=== PATIENT | male | born 1940 | race Caucasian/White ===

== ENCOUNTER 2017-03-19 17:54 | Outpatient (CLI) | payer MEDICARE, OTHER | END 2017-03-19 17:55 | disposition critical access hospital (66) | LOC: EMS 17:54 | PROVIDERS: ATTEND Surgery | DX: R55 Syncope and collapse (principal) | CPT/HCPCS: A0425; A0429 ==

== ENCOUNTER 2017-03-19 18:25 | Observation (INO) | payer MEDICARE, OTHER ==
--- NOTE | 2017-03-19 18:41 | ED Physician Documentation ---
PD HPI SYNCOPE - Stated complaint Stated Complaint: SYNCOPE - Chief complaint Chief Complaint: Neuro - History obtained from History obtained from: Patient, EMS - History of Present Illness Witnessed: Witnessed Timing - onset: Today Duration: Seconds Preceding symptoms: None Associated symptoms: None. No: Seizure, Incontinant of urine, Incontinant of stool, Headache, Vision changes, Chest pain, Palpitations, Diaphoresis, Dyspnea , Nausea / vomiting, Abdominal pain Contributing factors: Exertion (helping put a trailer into the bed of a pickup) . No: Recent med change, Decreased PO intake, Noxious stimulae, Emotional upset , Just stood up Injury occurred: Fell. No: Head injury, Neck injury, Bit tongue Pain level max: 0 Pain level now: 0 Recently seen: Not recently seen (doesn't have a PCP) Review of Systems Ten Systems: 10 systems reviewed and negative Constitutional: denies: Fever, Chills Nose: denies: Rhinorrhea / runny nose, Congestion Throat: denies: Sore throat Cardiac: denies: Chest pain / pressure, Palpitations Respiratory: denies: Cough GI: denies: Abdominal Pain, Nausea, Vomiting, Diarrhea Skin: denies: Rash Musculoskeletal: denies: Neck pain, Back pain Neurologic: denies: Focal weakness, Numbness, Confused, Altered mental status, Headache PD PAST MEDICAL HISTORY - Past Medical History Past Medical History: No - Past Surgical History Past Surgical History: No - Present Medications Home Medications: Ambulatory Orders Medication Instructions Recorded Confirmed No Known Home Medications [No 03/19/17 03/19/17 Known Home Medications] - Allergies Allergies/Adverse Reactions: Allergies Allergy/AdvReac Type Severity Reaction Status Date / Time No Known Drug Allergies Allergy Verified 03/19/17 18:31 - Living Situation Living Situation: reports: With family Living Arrangement: reports: At home - Social History Does the pt have substance abuse?: No - Family History Family history: reports: Non contributory PD ED PE NORMAL - Vitals Vital signs reviewed: Yes - General General: Alert and oriented X 3, No acute distress, Well developed/nourished - HEENT HEENT: Atraumatic, PERRL, Ears normal, Moist mucous membranes, Pharynx benign - Neck Neck: Supple, no meningeal sign, No bony TTP - Cardiac Cardiac: RRR, Strong equal pulses - Respiratory Respiratory: No respiratory distress, Clear bilaterally - Abdomen Abdomen: Soft, Non tender, Non distended - Back Back: No spinal TTP - Derm Derm: Warm and dry - Extremities Extremities: No edema, No calf tenderness / cord - Neuro Neuro: Alert and oriented X 3, 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, No motor deficit, No sensory deficit, Normal speech - Psych Psych: Normal mood, Normal affect Results - Vitals Vitals: Vital Signs - 24 hr 03/19/17 03/19/17 03/19/17 18:27 18:49 19:00 Temperature 36.1 C L Heart Rate 101 H 93 174 H Respiratory 16 16 16 Rate Blood Pressure 156/94 H 118/45 L 104/68 O2 Saturation 98 97 97 03/19/17 03/19/17 03/19/17 19:02 19:05 19:18 Temperature Heart Rate 92 94 87 Respiratory 16 16 17 Rate Blood Pressure 104/68 141/69 H 129/64 O2 Saturation 97 100 95 03/19/17 03/19/17 03/19/17 19:49 20:12 20:27 Temperature Heart Rate 85 89 85 Respiratory 16 16 17 Rate Blood Pressure 130/73 106/61 121/65 O2 Saturation 96 96 03/19/17 20:31 Temperature Heart Rate 79 Respiratory 17 Rate Blood Pressure O2 Saturation 97 Oxygen O2 Source Room air - EKG (time done) 1832 Rate: Rate (enter#) (91) Rhythm: NSR Gallant: Normal Intervals: Normal LA QRS: Normal Ischemia: T wave inversion (III, aVF) Computer interpretation: Agree with computer 1857 Rate: Rate (enter#) (162) Rhythm: SVT Gallant: Normal Ischemia: Other (rate related changes) Computer interpretation: Agree with computer 1901 Rate: Rate (enter#) (97) Rhythm: NSR Gallant: Normal Intervals: Normal LA QRS: Normal Ischemia: Normal ST segments Computer interpretation: Agree with computer - Labs Labs: Laboratory Tests 03/19/17 03/19/17 03/19/17 18:40 18:40 18:40 WBC 6.0 RBC 4.66 L Hgb 13.9 L Hct 41.5 L MCV 89.1 MCH 29.8 MCHC 33.4 RDW 16.1 H Plt Count 225 MPV 7.3 L Neut # 3.9 Lymph # 1.5 Luna # 0.4 Eos # 0.1 Baso # 0.0 Absolute Nucleated RBC 0.00 Nucleated RBCs 0.0 Sodium 138 Potassium 3.6 Chloride 101 Carbon Dioxide 26 Anion Gap 11.0 BUN 25 H Creatinine 0.8 Estimated GFR (MDRD) 94 Glucose 137 H Calcium 9.3 Total Bilirubin 0.7 AST 48 H ALT 35 Alkaline Phosphatase 136 H Troponin I 0.06 Total Protein 7.5 Albumin 4.8 Globulin 2.7 Albumin/Globulin Ratio 1.8 Lipase 19 L - Rads (name of study) cxr Radiology: Prelim report reviewed, EMP read contemporaneously, See rad report ( No acute pulmonary consolidation. Mild prominence of the right superior mediastinum, probably tortuous vessels. ) PD MEDICAL DECISION MAKING - ED course Complexity details: reviewed results, re-evaluated patient, considered differential, d/w patient, d/w loans consultant ED course: 1949 - Dr. Colunga (cardiology) at [facility]. Recommends not starting meds tonight. Recommends tele monitoring, echocardiogram and outpatient eval. Patient is a 76-year-old male who presents to the emergency department after a syncopal event tonight. No prodrome. While in the emergency department he had SVT. This was terminated with adenosine after vagal maneuvers failed. We will admit the patient for observation. Will plan to place on telemetry and have an echocardiogram in the morning. He does not currently have a primary care provider. Concern for cardiac arrhythmia causing the syncopal events as this is happened more than once with no prodrome. Currently has no chest pain, no shortness of breath. Discussed the case with Dr. Sifuentes, hospitalist who accepts. This document was made in part using voice recognition software. While efforts are made to proofread this document, sound alike and grammatical errors may occur. Departure - Departure Disposition: ED Place in Observation Clinical Impression: SVT (supraventricular tachycardia) Syncope Qualifiers: Syncope type: unspecified Qualified Code(s): R55 - Syncope and collapse Condition: Stable Discharge Date/Time: 03/19/17 21:20
[2017-03-19] MEDS ORDERED: SODIUM CHLORIDE 0.9% 1,000 ML IV ONE (18:42)
[2017-03-19] MEDS ORDERED: ADENOSINE 6 MG/2 ML VIAL IVP ONE (18:55)
[2017-03-19] MEDS ORDERED: ADENOSINE 6 MG/2 ML VIAL IVP STA (19:04)
[2017-03-19 19:05] LABS: BASOPHILS % (AUTO) 0.6 %; EOSINOPHILS # (AUTO) 0.1 10^3/uL (0.0-0.7); EOSINOPHILS % (AUTO) 2.4 %; HCT - HEMATOCRIT 41.5 % (42.0-52.0); HGB - HEMOGLOBIN 13.9 g/dL (14.0-18.0); LYMPHOCYTES # (AUTO) 1.5 10^3/uL (1.5-3.5); LYMPHOCYTES % (AUTO) 25.6 %; MEAN CORPUSCULAR HEMOGLOBIN 29.8 pg (27.0-31.0); MEAN CORPUSCULAR HGB CONC 33.4 g/dL (32.0-36.0); MEAN CORPUSCULAR VOLUME 89.1 fL (80.0-94.0); MEAN PLATELET VOLUME 7.3 fL (7.4-11.4); MONOCYTES # (AUTO) 0.4 10^3/uL (0.0-1.0); MONOCYTES % (AUTO) 7.4 %; NEUTROPHILS # (AUTO) 3.9 10^3/uL (1.5-6.6); RED BLOOD COUNT 4.66 10^6/uL (4.70-6.10); RED CELL DISTRIBUTION WIDTH 16.1 % (12.0-15.0)
[2017-03-19 19:19] LABS: ALBUMIN/GLOBULIN RATIO 1.8 (1.0-2.2); BILIRUBIN,TOTAL 0.7 mg/dL (0.2-1.0); CALCIUM 9.3 mg/dL (8.5-10.3); CREATININE 0.8 mg/dL (0.6-1.2); POTASSIUM 3.6 mmol/L (3.5-5.0); TOTAL PROTEIN 7.5 g/dL (6.7-8.2)
--- NOTE | 2017-03-19 19:26 | XRAY Preliminary Report ---
Exam: XR Chest 1 View IMPRESSION: 1. No acute pulmonary consolidation. 2. Mild prominence of the right superior mediastinum, probably tortuous vessels. [facility] SITE ID: [id number]
--- NOTE | 2017-03-19 19:28 | XRAY Report ---
EXAM: CHEST RADIOGRAPHY EXAM DATE: 03/19/2017 07:00 PM. CLINICAL HISTORY: Syncope. COMPARISON: None. TECHNIQUE: 1 view. FINDINGS: Lungs/Pleura: No focal opacities evident. No pleural effusion. No pneumothorax. Mediastinum: Normal heart size. Mild prominence of the right superior mediastinum. Other: None. IMPRESSION: 1. No acute pulmonary consolidation. 2. Mild prominence of the right superior mediastinum, probably tortuous vessels. [facility] Referring Provider Line: [phone] SITE ID: [id number]
[2017-03-19] MEDS ORDERED: SODIUM CHLORIDE FLUSH 0.9% 10 ML SYRINGE IVP PRN (20:35)
[2017-03-19] MEDS ORDERED: ONDANSETRON 4 MG/2 ML VIAL IVP PRN (20:35)
[2017-03-19] MEDS ORDERED: ACETAMINOPHEN 325 MG TABLET PO PRN (20:35)
[2017-03-20] MEDS: SODIUM CHLORIDE 0.9% 1,000 ML IV SCH ×2 (00:33→11:19)
--- NOTE | 2017-03-20 02:05 | HISTORY & PHYSICAL EXAMINATION ---
DATE OF ADMISSION: 03/19/2017 PRIMARY CARE PHYSICIAN: None. CHIEF COMPLAINT: Syncopal episode. HISTORY OF PRESENT ILLNESS: This is a 76-year-old male who presents by EMS after having a syncopal ep isode at home. He was helping someone with a trailer and passed out, lost consciousness for a few sec onds, and did hit the right side of his head; he has a superficial abrasion at the right forehead are a. He noted that he was feeling a fast heart rate prior to this happening. He also describes an upper chest sternal tightness, which lasted briefly prior to this episode. He had a similar episode in Jan but did not seek medical care for that. At that point, he did not eat anything the whole day, and it had occurred. He was not doing anything exertional at that time. The patient does note that with t his episode, he was eating appropriately the day of the event. His evaluation in the emergency room noted that he initially was brought in with sinus rhythm; ginoe r, then developed a supraventricular tachycardia at 160 with some repolarization abnormalities noted. He did convert into sinus after 6 mg of IV adenosine. Of note, as documented in the ER MD's note, wi th the tachycardia, his blood pressure was 104/68; prior to that, blood pressure was 118/45. His O2 s aturations remained normal on room air pre- and post and during the event. His baseline EKG sinus rev eals rate of 91 with some borderline T-wave inversions in III, aVF. First troponin was noted to be 0. 06. Patient is currently asymptomatic. PAST MEDICAL HISTORY 1. 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 2. 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 MEDICATIONS UPON ADMISSION: None. ALLERGIES: NO KNOWN DRUG ALLERGIES. SOCIAL HISTORY: Lives with significant other. HABITS SMOKING: Quit 1959. ALCOHOL: 2-3 mixed drinks daily. FAMILY MEDICAL HISTORY: No history of coronary artery disease. Father had a history of TIAs in his 90 s. REVIEW OF SYSTEMS: Denies any fever or chills; denies any nausea or vomiting, alteration in bowel mov ements. All other review of systems are reviewed and are negative except as in HPI. PHYSICAL EXAMINATION VITAL SIGNS: Heart rate is 79, blood pressure 121/65, respiratory rate 17, room air saturation 97%. CONSTITUTIONAL: An elderly male in no acute distress. HEENT: Head does reveal a superficial abrasion of his right forehead. Eyes: PERRLA-DC, EOMI. Mouth: N o lesions. NECK: No adenopathy. Carotids 2+/4 without bruits. CHEST: Clear to auscultation. COR: Regular rate and rhythm. S1, S2 without murmur. ABDOMEN: Soft, nontender. Bowel sounds present. EXTREMITIES: Exam reveals no pedal edema. SKIN: No rashes. PSYCHIATRIC: Mood and affect are appropriate. NEUROLOGIC: Alert and oriented x3. Motor strength is intact bilaterally. LABORATORY DATA As above, also to include: Chest x-ray, which shows no acute pulmonary consolidation, mild prominence of the right superior medi astinal, probably tortuous vessel. Sodium 138, potassium 3.6, chloride 101, bicarbonate 26, anion gap 11, BUN 25, creatinine 0.8, calcul ated GFR 94, glucose 137, calcium 9.3, total bilirubin 0.7, AST 48, ALT 35, alkaline phosphatase 136, troponin 0.06. Total protein 7.5, albumin 4.8, lipase 19. White count 6.0, hemoglobin 13.9, hematocrit 41.5, MCV 89.1, platelets 225, 3.9 neutrophils. ASSESSMENT AND PLAN 1. Syncopal episode with a run of supraventricular tachycardia after conversion with adenosine intrav enous. We will go ahead and place on telemetry. This possibly could be etiology. We will check serial cardiac enzymes, check echocardiogram in a.m. 2. Deep venous thrombosis prophylaxis. We will go ahead and use SCDs; will not put on subcutaneous an ticoagulation, given some trauma to his head. 3. Code status. The patient is FULL CODE. TIME SPENT: 60 minutes. JOB #: [id number] EXT JOB #:[id number]
[2017-03-20] MEDS: SODIUM CHLORIDE FLUSH 0.9% 10 ML SYRINGE IVP SCH ×2 (02:07→05:28)
[2017-03-20] MEDS ORDERED: POLYETHYLENE GLYCOL 3350 17 GM PACKET PO SCH (09:00)
--- NOTE | 2017-03-20 10:02 | Discharge Plan ---
Discharge Plan Disposition: 01 Home, Self Care Condition: Stable Diet: Regular Activity Restrictions: No Restrictions Shower Restrictions: No Driving Restrictions: No Weight Bearing: Full Weight Additional Instructions or Follow Up instructions: -Supraventricular tachycardia (rapid regular heart rate) You came to the hospital after a passing-out episode, (which has also happened previously) that appeared to be most likely related to episodic very fast heart rate (in looking at other possible reasons for passing out, your chemistries/blood work and complete blood count were not remarkable, your blood sugar was ok, chest X ray normal, no shortness of breath nor oxygen need, no evident seizure activity, no evident no culprit medications (you had not eateen no significant "leak" of heart enzymes (no heart attack), , Your heart rate was found to be ~ 160 (regular rate), this did not improve with "vagal maneuvers" tried in the ED. The rapid rate did respond to a medication; adenosine The ED spoke with a Dr. Colunga at [facility], He did not recommend starting medications for rate control at this time (and your relatively low HR 60's - 70 did not leave alot of room for rate control medications) Dr. Colunga Advised monitroing on telemetry (you remained in normal sinus rhythm overnight ever since the adenosine) and echocardiogram Echo result: Preliminary read: normal ejection fraction 65-70%, No wall motion abnormality VAlves ; no significant abnormality. No high pulmonary pressures (RVSP 36 mm (mildly elevated). Mild tricauspid regurg, On preliminary read: Severe Right atrial enlaregement , and inleft atrial volume index. YOu will need an outpatient cardiology evaluation; Call the [facility] for a cardiology consultation. Call [facility] will need to set up an appointment with a new PCP ( ideally you should have a PCP) No Smoking: If you smoke, Please STOP! Call for help.
[2017-03-20 12:14] VITALS: BP 128/78
--- NOTE | 2017-03-20 15:51 | DISCHARGE SUMMARY ---
DATE OF ADMISSION: 03/19/2017 DATE OF DISCHARGE: 03/20/2017 PRIMARY CARE PROVIDER: He does not have one. He is advised to get a provider on [facility] or wherever his preference would be and he should have a cardiology appointment at the [facility], which he has yet to establish. DISCHARGE DIAGNOSES: 1. Supraventricular tachycardia. 2. Syncope due to supraventricular tachycardia. CONSULTATIONS: None. PROCEDURES: None. DIAGNOSTIC STUDIES AND IMAGING STUDIES: Chest x-ray 03/19/2017, no acute pulmonary consolidation, no acute abnormality. Mild prominent right superior mediastinum probably tortuous vessels. Echocardiogram 03/19/2017, this is the preliminary report: Normal LV size and function with an overall EF of 65% to 70%, no regional wall motion abnormalities , indeterminate diastolic function.False chordae tendinae noted LV . Normal RV size and function . (note ;On the preliminary report, left atrial volume index is reported as severe increase and also right atrium is noted as having severe right atrial enlargement/ NOT noted on cardiolgoists interpretation. ) No significant valvular abnormalities, specifically no aortic stenosis, no aortic regurg, no mitral stenosis. Trace mitral regurgitation, mild tricuspid regurgitation, and mildly elevated right heart pressures with an RVSP of 36 mmHg , pulmonic valve normal. IVC dilatd suggests elevated CVP LABORATORY DIAGNOSTICS: Sodium 138, potassium 3.6, chloride 101, bicarbonate 26 , BUN 25, creatinine 0.8, glucose 137. Troponin #1 0.06. Second troponin 0.10 and third troponin 0.07. White count 6.0, hemoglobin 13.9, hematocrit 41.5, platelets 225,000. BRIEF HOSPITAL COURSE: The patient is a 76-year-old gentleman with no significant past medical history. He came to the emergency room after having an abrupt syncopal episode with no prodrome. He has had a similar episode in the past and does note that he did have a sense of palpitations. He did immediately recover consciousness. In the emergency room when he first came in he was in sinus rhythm; however, had an SVT with a rate of 160. This did not respond to vagal maneuvers, however, did convert to sinus rhythm with 6 mg of IV adenosine. The ER spoke with a Dr. Colunga of Cardiology at [facility]. He advised monitoring on telemetry and obtaining echocardiogram and for the moment not starting any medications. Of note, the patient's heart rate after converted to normal sinus with the adenosine remained at a rate between 60 and 70 so there was little room for a rate control agent anyway. His blood pressure was stable, and at the time of his heart rate being 160, his systolic was in the one -teens. He was monitored overnight on telemetry and remained in sinus rhythm. His troponins had a very minimal indeterminate increase. Echocardiogram as above showed normal LV size and function. The preliminary report suggested severe right atrial enlargement, although there was no obvious reason that would be in the final read by the food technologist is pending. The patient does not have a PCP. He was given the phone number for the [facility] and advised to have a cardiology followup. The detail of his admission is included on his discharge paperwork with him to bring to the food technologist in the event the discharge summary is not yet available. He is also advised at his age to at least have a primary care provider available. He does drink approximately 3 alcohol drinks daily and had not eaten on the day of the syncopal event, though this was not atrial fibrillation and just the alcohol alone should not be a precipitant for the SVT. His BUN and creatinine suggest he was mildly volume depleted. He was advised to reduce the alcohol and drink plenty of liquids especially with the warmer weather coming. DISCHARGE MEDICATIONS: No new medications. He can continue his p.r.n. Ibuprofen 400 mg. PHYSICAL EXAMINATION ON THE DAY OF DISCHARGE: VITAL SIGNS: Afebrile, 36.6, heart rate 64 to 70, blood pressure 128-132/78, respiratory rate 16, 96-97% room air oxygenation. This patient is a very pleasant, alert, oriented, older gentleman with a very small contusion on his right forehead. CHEST: Clear to auscultation. HEART: Regular S1, S2 with no appreciable extra sounds. ABDOMEN: Benign. Positive bowel sounds. He has no appreciable extremity edema. JOB #: [id number] EXT JOB #:[id number] MTDD
== END 2017-03-20 12:48 | disposition home or self-care (01) ==
LOC: ED 18:25 → MS 20:35
PROVIDERS: ADMIT Specialist; ATTEND Nurse Practitioner
DX: I47.1 Supraventricular tachycardia (principal); R55 Syncope and collapse; S00.83XA Contusion of other part of head, initial encounter; W19.XXXA Unspecified fall, initial encounter; X50.0XXA Overexertion from strenuous movement or load, initial encounter; Y92.009 Unspecified place in unspecified non-institutional (private) residence as the place of occurrence of the external cause; Z96.643 Presence of artificial hip joint, bilateral; Z87.891 Personal history of nicotine dependence; Z82.0 Family history of epilepsy and other diseases of the nervous system
CPT/HCPCS: 36415; 71010; 80053; 83690; 84484; 85025; 93005; 93010; 93306; 96361; 96374; 99285; G0378; J0153

== ENCOUNTER 2023-05-23 08:51 | Outpatient (CLI) | payer MEDICARE, OTHER ==
--- NOTE | 2023-05-23 13:55 | XRAY Report ---
PROCEDURE: Lumbar Spine 2 View INDICATIONS: LOW BACK PAIN TECHNIQUE: 3 views of the lumbar spine were acquired. COMPARISON: None. FINDINGS: Bones: 5 [id number] vertebrae are present. There is normal bony alignment. No vertebral body compression fractures. No suspicious bony lesions. Multilevel disc space narrowing and degenerative endplate changes with bridging osteophyte formation. Mild bilateral facet hypertrophy. Bilateral tota l hip arthroplasties are present. Soft tissues: Overlying bowel gas pattern is normal. No suspicious soft tissue calcifications. IMPRESSION: Moderate multilevel spondylosis. Reviewed by: Oj Arellano MD on 05/23/2023 1:54 PM PDT Approved by: Oj Arellano MD on 05/23/2023 1:54 PM PDT Station ID: [id number]
== END 2023-05-23 08:52 | disposition home or self-care (01) ==
LOC: DI.S 08:51
PROVIDERS: ATTEND Nurse Practitioner Family
DX: M47.816 Spondylosis without myelopathy or radiculopathy, lumbar region (principal)

== ENCOUNTER 2023-07-31 13:12 | Outpatient (CLI) | payer MEDICARE, OTHER | END 2023-07-31 13:13 | disposition critical access hospital (66) | LOC: EMS 13:12 | DX: R20.2 Paresthesia of skin (principal); R53.1 Weakness; R47.81 Slurred speech | CPT/HCPCS: A0425; A0429 ==

== ENCOUNTER 2023-07-31 13:43 | Emergency (ER) | payer MEDICARE, OTHER ==
--- NOTE | 2023-07-31 13:47 | ED Physician Documentation ---
PD HPI FOCAL NEURO - Stated complaint Stated Complaint: SLURRING SPEEACH/R ARM TINGLING - History obtained from History obtained from: Patient, EMS - History of Present Illness Timing - onset: Today (at 11 am.) Timing - duration: Hours (3) Timing - details: Abrupt onset, Now resolved (he feels symptoms are mostly resolved with just minimal word searching.) Severity of deficit: Moderate (expressive aphasia) Weakness: Hand, Right. No: Face, Leg Numbness: Hand, Right. No: Face, Leg Associated symptoms: No: Headache, Nausea / vomiting Contributing factors: negative: Anticoagulated, Atrial fibrillation Baseline status: positive: A&OX3, ambulatory, indep Similar symptoms before: Has not had sx before Recently seen: Not recently seen Review of Systems Constitutional: denies: Fever, Chills Neurologic: denies: Focal weakness, Headache, Head injury PD PAST MEDICAL HISTORY - Past Medical History Cardiovascular: None Respiratory: None Neuro: None GI: None : None HEENT: None Psych: None Musculoskeletal: Osteoarthritis Derm: None - Past Surgical History Past Surgical History: No Ortho: Hip replacement, Arthroscopic surgery - Present Medications Home Medications: Ambulatory Orders Medication Instructions Recorded Confirmed No Known Home Medications 07/31/23 07/31/23 - Allergies Allergies/Adverse Reactions: Allergies Allergy/AdvReac Type Severity Reaction Status Date / Time No Known Drug Allergies Allergy Verified 03/19/17 18:31 - Social History Does the pt smoke?: No Smoking Status: Never smoker Does the pt have substance abuse?: No PD ED PE NORMAL - Vitals Vital signs reviewed: Yes - General General: Alert and oriented X 3, No acute distress, Well developed/nourished - HEENT HEENT: Atraumatic, PERRL, EOMI - Neck Neck: No bruit - Cardiac Cardiac: RRR, No murmur - Respiratory Respiratory: Clear bilaterally - Derm Derm: Normal color, Warm and dry - Neuro Neuro: Alert and oriented X 3, 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 No: Normal speech (normal articulation. Mild word search and hesitancy at times. ) NIHSS - Level of Consciousness Level of consciousness: (0) Alert, Keenly responsive LOC Questions: (0) Answers both Q's correct LOC Commands: (0) Performs both correctly - Gaze Best Gaze: (0) Normal - Visual Visual: (0) No loss - Facial Palsy Facial Palsy: (0) Normal, symmetrical movement - Motor Arms (both separate) Motor Arm (right): (0) No drift Motor Arm (left): (0) No drift - Motor Legs (both separate) Motor Leg (right): (0) No drift Motor Leg (left): (0) No drift - Limb Ataxia Limb Ataxia: (0) Absent - Sensory Sensory: (0) Normal - Best Language Best Language: (1) [id number] - Dysarthria Dysarthria: (0) Normal - Extinction and Inattention (formally neg Extinction and inattention: (0) No abnormality - Total Score/Results Total Score/Result: 1 Results - Vitals Vitals: Vital Signs - 24 hr 07/31/23 07/31/23 07/31/23 14:13 14:20 14:54 Temperature 36.1 C L Heart Rate 88 83 77 Respiratory 18 18 17 Rate Blood Pressure 144/83 H 144/83 H O2 Saturation 97 100 95 07/31/23 07/31/23 07/31/23 15:10 15:33 17:08 Temperature Heart Rate 90 83 84 Respiratory 17 17 16 Rate Blood Pressure 148/83 H O2 Saturation 96 99 07/31/23 07/31/23 07/31/23 17:13 17:26 18:32 Temperature Heart Rate 83 91 Respiratory 18 17 17 Rate Blood Pressure 157/87 H 126/85 H O2 Saturation 98 98 07/31/23 07/31/23 07/31/23 19:00 19:30 20:00 Temperature Heart Rate 89 78 80 Respiratory 20 20 15 Rate Blood Pressure 120/60 133/73 H O2 Saturation 96 98 98 07/31/23 07/31/23 07/31/23 20:30 21:00 21:30 Temperature 36.7 C Heart Rate 77 84 85 Respiratory 18 17 18 Rate Blood Pressure 143/73 H 132/79 H O2 Saturation 96 100 96 Oxygen O2 Source Room air - Labs Labs: Laboratory Tests 07/31/23 07/31/23 07/31/23 14:39 14:44 14:44 WBC 5.2 RBC 4.46 L Hgb 13.4 L Hct 40.9 L MCV 91.7 MCH 30.0 MCHC 32.8 RDW 12.6 Plt Count 198 MPV 8.6 Neut # (Auto) 3.3 Lymph # (Auto) 1.2 L Creek # (Auto) 0.5 Eos # (Auto) 0.2 Baso # (Auto) 0.0 Absolute Nucleated RBC 0.00 Nucleated RBC % 0.0 ESR Sodium 138 Potassium 3.7 Chloride 100 L Carbon Dioxide 32 Anion Gap 6.0 BUN 27 H Creatinine 0.8 Estimated GFR (MDRD) 93 Glucose 108 H POC Whole Bld Glucose 108 H Calcium 9.6 Magnesium 1.8 Total Bilirubin 0.5 AST 26 ALT 29 Alkaline Phosphatase 101 Total Protein 6.6 Albumin 4.5 Globulin 2.1 Albumin/Globulin Ratio 2.1 Lipase 20 Vitamin B12 1022 H SARS-CoV-2 (PCR) 07/31/23 07/31/23 14:44 15:05 WBC RBC Hgb Hct MCV MCH MCHC RDW Plt Count MPV Neut # (Auto) Lymph # (Auto) Creek # (Auto) Eos # (Auto) Baso # (Auto) Absolute Nucleated RBC Nucleated RBC % ESR 2 Sodium Potassium Chloride Carbon Dioxide Anion Gap BUN Creatinine Estimated GFR (MDRD) Glucose POC Whole Bld Glucose Calcium Magnesium Total Bilirubin AST ALT Alkaline Phosphatase Total Protein Albumin Globulin Albumin/Globulin Ratio Lipase Vitamin B12 SARS-CoV-2 (PCR) NOT DETECTED - Rads (name of study) head CT Relevant Findings:: Prelim report reviewed (likely chronic microvascular changes. ), EMP independent interpretation of test head/neck CTA Relevant Findings:: Prelim report reviewed (high grade stenoses at takeoff of ICAs bilaterally. ), Discussed with rads (Rad estimated about 90% stenosis both sides. ), EMP independent interpretation of test PD Medical Decision Making - ED course Complexity details: reviewed results, re-evaluated patient (the patient feeling he is mostly improved with just faint residual hesitancy on sentences and some word search. Otherwise no focal weaknesses. ), considered differential (had onset of moderate to severe aphasia and right arm/hand tingling/weakness. Mostly improved. TIA vs CVA. Not candidate for lytics per Stroke Neurology. Needs Vascular consultation for carotid stenoses. ), d/w patient, d/w vmware consultant (Dr. Salcido, Vascular surgery for [facility], who said pt should be transferred for endovascular treatment of the stenoses. ), other (Stroke Neurology did not feel lytics appropriate given improved symptoms, timing of onset now over 4 hours, and no indication of LVO. To consult Vascular urgently re stenoses. ) - Critical Care Time(min): 40 Comments: acute stroke symptoms with time urgency for evaluation, multiple consultations, testing. Decision window on thrombolytics. Time Includes: Direct patient care, Reassess patient, Document care, Coordinate care, Medical consult Procedures excluded from critical care time: EKG Departure - Departure Disposition: 02 Transfer Acute Care Hosp Clinical Impression: Aphasia, Stroke-like symptom, Carotid stenosis Condition: Stable Forms: PCP List Discharge Date/Time: 07/31/23 21:50
--- NOTE | 2023-07-31 14:20 | CT Report ---
PROCEDURE: Head W/O Stroke Protocol INDICATIONS: aphasia and right hand tingling TECHNIQUE: Noncontrast 4.5 mm thick angled axial sections acquired from the foramen magnum to the vertex, with c oronal reformats. For radiation dose reduction, the following was used: automated exposure control, adjustment of mA and/or kV according to patient size. COMPARISON: None. FINDINGS: Image quality: Excellent. CSF spaces: Basal cisterns are patent. No extra-axial fluid collections. Ventricles are normal in size and shape. Brain: No midline shift. No intracranial masses or hemorrhage. There are extensive deep and periv entricular white matter changes. Focal deep periventricular white matter changes are noted within the right occipitoparietal watershed area (series 2/image 31 and series 5/image 49). There is global vol ume loss, greater than expected for patient age. Skull and face: Calvarium and visualized facial bones are intact, without suspicious lesions. Sinuses: Visualized sinuses and mastoids are clear. IMPRESSION: 1. Focal periventricular white matter changes within the watershed distribution between the parietal and occipital lobes. Findings most likely represent sequela of chronic microvascular ischemic changes ; however subacute or early chronic infarct could also cause this appearance. 2. Global volume loss and periventricular white matter throughout are consistent with extensive chron ic microvascular ischemic changes. These findings were discussed with Dr. Gage at 2:18 PM on 07/31/2023. This study fulfills neurological imaging criteria for inclusion or exclusion of acute stroke therapie s based on available published neurological imaging guidelines. Reviewed by: Nereida Spicer MD on 07/31/2023 2:19 PM PDT Approved by: Nereida Spicer MD on 07/31/2023 2:19 PM PDT Station ID: [id number]
--- NOTE | 2023-07-31 14:27 | CT Report ---
PROCEDURE: CT Angio Head/Neck INDICATIONS: aphasia and right hand tingling CONTRAST: 80ml omni 300 TECHNIQUE: After the administration of intravenous contrast, 1.5 mm axial sections acquired from the aortic arch to the [place]. Coronal 3-D maximum intensity projection (MIP) and/or volume rendering ref ormats were then performed. For radiation dose reduction, the following was used: automated exposur e control, adjustment of mA and/or kV according to patient size. COMPARISON: Noncontrast head CT dated 07/31/2023. FINDINGS: Image quality: Excellent. Carotid system: The great vessels demonstrate a conventional anatomy as they arise from the aortic a rch. The origins of the common carotid arteries appear patent. The common carotid arteries demonstr ate normal calibers and courses. Dense calcifications are present at the bilateral carotid bulbs. A h igh-grade stenosis is present within the inferior aspect of the right internal carotid artery. There is a moderate stenosis within the left carotid bulb and a high-grade stenosis at the origin of the le ft internal carotid artery. The more superior portions of the cervical carotid arteries are widely pa tent bilaterally. Atheromatous calcifications are present bilaterally within the cavernous portions o f the internal carotid arteries with mild to moderate stenosis. The internal carotid arteries demonst rate normal caliber and course. Posterior circulation: The origins of the vertebral arteries appear patent. The more superior porti ons of the vertebral arteries demonstrate normal course and caliber. They join to form a normal appe aring basilar artery. Soft tissues: Visualized neck soft tissues demonstrate no suspicious abnormalities. The thyroid is normal in size and there are no incidental findings. Bones: No suspicious bony lesions. Visualized cervical spine appears normally aligned. IMPRESSION: 1. Focal high-grade stenoses at the origins of the bilateral internal carotid arteries. 2. Mild stenosis of the cavernous portions of the bilateral internal carotid artery secondary to athe romatous calcifications. 3. No other stenosis, occlusion, or aneurysm of the cervical or intracranial vasculature. The estimate of stenosis included in the report of the imaging study was calculated using the NASCET method CLINICAL RECOMMENDATION STATEMENTS: In patients <35 years with an ITN detected on CT, MRI, or extrathyroidal ultrasound, the Committee re commends further evaluation with dedicated thyroid ultrasound if the nodule is "e1 cm and has no susp icious imaging features, and if the patient has normal life expectancy. In patients "e35 years with an ITN detected on CT, MRI, or extrathyroidal ultrasound, the Committee r ecommends further evaluation with dedicated thyroid ultrasound if the nodule is "e1.5 cm and has no s uspicious imaging features, and if the patient has normal life expectancy. (ACR, 2014) Reviewed by: Nereida Spicer MD on 07/31/2023 2:26 PM PDT Approved by: Nereida Spicer MD on 07/31/2023 2:26 PM PDT Station ID: [id number]
[2023-07-31] MEDS ORDERED: iohexoL-300 100 ML VIAL IVP ONE (14:48)
[2023-07-31 14:51] LABS: BASOPHILS % (AUTO) 0.2 %; EOSINOPHILS # (AUTO) 0.2 10^3/uL (0.0-0.7); EOSINOPHILS % (AUTO) 3.2 %; HCT - HEMATOCRIT 40.9 % (42.0-52.0); HGB - HEMOGLOBIN 13.4 g/dL (14.0-18.0); LYMPHOCYTES # (AUTO) 1.2 10^3/uL (1.5-3.5); LYMPHOCYTES % (AUTO) 23.5 %; MEAN CORPUSCULAR HGB CONC 32.8 g/dL (32.0-36.0); MEAN CORPUSCULAR VOLUME 91.7 fL (80.0-94.0); MEAN PLATELET VOLUME 8.6 fL (7.4-11.4); MONOCYTES # (AUTO) 0.5 10^3/uL (0.0-1.0); MONOCYTES % (AUTO) 9.7 %; NEUTROPHILS # (AUTO) 3.3 10^3/uL (1.5-6.6); PLT - PLATELET COUNT 198 10^3/uL (130-450); RED BLOOD COUNT 4.46 10^6/uL (4.70-6.10); RED CELL DISTRIBUTION WIDTH 12.6 % (12.0-15.0); WHITE BLOOD COUNT 5.2 x10^3/uL (4.8-10.8)
[2023-07-31] MEDS ORDERED: CLOPIDOGREL 300 MG TABLET PO STA (15:13)
[2023-07-31] MEDS ORDERED: ASPIRIN CHEW 81 MG TABLET PO STA (15:13)
[2023-07-31 15:17] LABS: ALBUMIN 4.5 g/dL (3.2-5.5); ALBUMIN/GLOBULIN RATIO 2.1 (1.0-2.2); BILIRUBIN,TOTAL 0.5 mg/dL (0.2-1.0); CALCIUM 9.6 mg/dL (8.5-10.3); CREATININE 0.8 mg/dL (0.6-1.3); MAGNESIUM 1.8 mg/dL (1.7-2.3); POTASSIUM 3.7 mmol/L (3.5-4.5); TOTAL PROTEIN 6.6 g/dL (6.4-8.9)
[2023-07-31 21:38] VITALS: BP 132/79; O2SAT 96
== END 2023-07-31 21:50 | disposition short-term general hospital (02) ==
LOC: EDUNIT# → ED 13:43
DX: I65.23 Occlusion and stenosis of bilateral carotid arteries (principal); R47.01 Aphasia; Z20.822 Contact with and (suspected) exposure to COVID-19
CPT/HCPCS: 36415; 70450; 70496; 70498; 80053; 82607; 83690; 83735; 85025; 85651; 87635; 93005; 99284; 99285; A9270; Q9967